=== PATIENT | male | born 1990 | race Caucasian/White ===

== ENCOUNTER 2021-01-22 19:22 | Day surgery (SDCO) | payer OTHER ==
[2021-01-22 20:06] LABS: BASOPHIL 0.1 % (0-2); EOSINOPHIL 0 % (0-5); HCT 44.7 % (42.0-52.0); HGB 16.2 g/dl (13.2-18.0); LYMPHOCYTE 3.8 % (15-48); MCH 31.8 pg (25.0-31.0); MCHC 36.2 g/dL (32.0-36.0); MCV 87.8 fL (78.0-100.0); MONOCYTE 5.5 % (0-12); MPV 11.2 fL (6.0-9.5); NRBC 0; PLT 237 K/uL (150-400); RBC 5.09 M/uL (4.70-6.00); WBC 17.3 K/uL (4.0-10.5)
[2021-01-22 20:07] LABS: NEUTROPHIL 90.1 % (41-80)
[2021-01-22 20:12] LABS: BILIRUBIN NEGATIVE (NEGATIVE); BLOOD NEGATIVE Ery/uL (NEGATIVE); CLARITY CLEAR (CLEAR); COLOR YELLOW (YELLOW); GLUCOSE (U) 3+ mg/dL (NORMAL); LEUKOCYTES NEGATIVE Leu/uL (NEGATIVE); NITRITE NEGATIVE (NEGATIVE); PROTEIN 1+ mg/dL (NEGATIVE); SPECIFIC GRAVITY >=1.030 (1.001-1.030); UROBILINOGEN 0.2 mg/dL (0.2-1.0)
[2021-01-22 20:22] LABS: SQUAMOUS EPITHELIAL CELLS RARE
[2021-01-22 20:25] LABS: BILIRUBIN - TOTAL 0.7 mg/dL (0.2-1.0); BUN/CREAT RATIO (CALC) 23.2 RATIO; C-REACTIVE PROTEIN 1.9 mg/dL (<=0.90); CREATININE 0.69 mg/dL (0.67-1.17); GLOBULIN (CALCULATION) 3.7 g/dL; POTASSIUM 3.9 mmol/L (3.5-5.1); TOTAL PROTEIN 7.7 g/dL (6.4-8.2)
[2021-01-23 05:36] LABS: BASOPHIL 0.2 % (0-2); EOSINOPHIL 0.2 % (0-5); HCT 41.4 % (42.0-52.0); HGB 14.9 g/dl (13.2-18.0); LYMPHOCYTE 9.6 % (15-48); MCH 31.8 pg (25.0-31.0); MCV 88.5 fL (78.0-100.0); MONOCYTE 6.2 % (0-12); MPV 11.2 fL (6.0-9.5); NEUTROPHIL 83.3 % (41-80); NRBC 0; PLT 222 K/uL (150-400); RBC 4.68 M/uL (4.70-6.00); WBC 13.3 K/uL (4.0-10.5)
[2021-01-23 05:45] LABS: INR 1.07 (0.9-1.2); PROTHROMBIN TIME 13.2 SECONDS (11.4-13.6); PTT 28.3 SECONDS (22.2-34.7)
[2021-01-23 05:52] LABS: BUN/CREAT RATIO (CALC) 23.4 RATIO; CREATININE 0.64 mg/dL (0.67-1.17); POTASSIUM 3.4 mmol/L (3.5-5.1)
--- NOTE | 2021-01-23 09:40 | NUR ---
Pt screened this a.m. by RD for nutritional issues. Pt currently NPO awaiting surgical consult. Pt has a A1c of 10.8 with poss dx of DM. Will monitor POC and provide nutrition education re: diabetes when appropriate. Would also rec patient be referred to outpt RD for f/u when d/c'd.
[2021-01-23] MEDS ORDERED: NOVOLOG MI100 UNIT/3 SC (12:13)
[2021-01-23] MEDS ORDERED: NORCO 5-325 TA1 EACH PO (12:16)
--- NOTE | 2021-01-23 14:27 | NUR ---
01/23/21 Mr. Martinez is a 30 y/o. He is newly dx with diabetes. Mr. Martinez does not have a PCP or [facility] insurance. [employer] has enrolled him in a Medicaid plan which will last for 3 months only. Nursing scheduled an appointment at Dr. Rodrigez's office. Patient was educated to the [facility] to utilize for PCP when his Medicaid is no longer effect. - Medication were priced at [facility] and relayed to family. They report to be able to afford the medications.
== END 2021-01-23 14:23 | disposition home or self-care (01) ==
LOC: FER 19:22 → FMS 22:32
PROVIDERS: Nurse Practitioner; Student in an Organized Health Care Education/Training Program; ADMIT Allergy & Immunology Allergy
DX: K35.30 Acute appendicitis with localized peritonitis, without perforation or gangrene (principal); E11.65 Type 2 diabetes mellitus with hyperglycemia; Z79.4 Long term (current) use of insulin; Z20.822 Contact with and (suspected) exposure to COVID-19
CPT/HCPCS: 36415; 80048; 80053; 81001; 83036; 83605; 83690; 84145; 85025; 85610; 85730; 86140; 93005; G0378; J1100; J1170; J1885; J2250; J2405; J2543; J2704; J2710; J3010; J7030; J7120; Q9967; U0002